=== PATIENT | male | born 1985 | race Hispanic/Latino ===

== ENCOUNTER 2017-04-25 21:29 | Inpatient (IN) | payer OTHER ==
[2017-04-25] MEDS ORDERED: NACL 0.9% 1000 ML 1,000 ML ONE (21:42)
[2017-04-25] MEDS ORDERED: ZOFRAN ONE (21:42)
[2017-04-25] MEDS ORDERED: TYLENOL ONE (21:52)
[2017-04-25] MEDS ORDERED: NACL 0.9% 500 ML 500 ML IV ONE (21:54)
[2017-04-25] MEDS ORDERED: TYLENOL PO STA (21:54)
[2017-04-25] MEDS ORDERED: NACL 0.9% 1000 ML 1,000 ML IV ONE (21:56)
[2017-04-25] MEDS ORDERED: ATIVAN IV ONE (22:03)
[2017-04-25] MEDS ORDERED: ATIVAN ONE (22:07)
[2017-04-25 22:17] LABS: Basophils % (Auto) 0.4 % (0.0-1.8); Eosinophils % (Auto) 0.4 % (0.0-4.3); Hematocrit 38.3 % (35.5-45.6); Hemoglobin 13.3 gm/dl (11.8-15.2); Mean Corpuscular HGB Conc 35 % (32-34); Mean Corpuscular Hemoglobin 30 pg (28-32); Mean Corpuscular Volume 87 fl (84-94); Platelet Count 129 K/mm3 (140-440); Red Blood Count 4.38 M/mm3 (3.65-5.03); Red Cell Distribution Width 13.9 % (13.2-15.2); White Blood Count 10.3 K/mm3 (4.5-11.0)
[2017-04-25 22:29] LABS: INR 1.07 (0.87-1.13)
[2017-04-25 22:37] LABS: Anion Gap 22 mmol/L; Blood Urea Nitrogen 12 mg/dL (9-20); Calcium 8.9 mg/dL (8.4-10.2); Carbon Dioxide 18 mmol/L (22-30); Chloride 100.3 mmol/L (98-107); Glucose 120 mg/dL (75-100); Sodium 137 mmol/L (137-145)
[2017-04-25 22:41] LABS: Alanine Aminotransferase 50 units/L (7-56); Albumin 3.5 g/dL (3.9-5); Albumin/Globulin Ratio 0.9 %; Alkaline Phosphatase 246 units/L (35-129); Anion Gap 21 mmol/L; BUN/Creatinine Ratio 13.33; Blood Urea Nitrogen 12 mg/dL (9-20); Calcium 9.1 mg/dL (8.4-10.2); Carbon Dioxide 18 mmol/L (22-30); Chloride 100.9 mmol/L (98-107); Glucose 124 mg/dL (75-100); Sodium 137 mmol/L (137-145); Total Protein 7.2 g/dL (6.3-8.2)
--- NOTE | 2017-04-25 22:43 | Emergency Department Report ---
HPI - General Chief Complaint: Nausea/Vomiting/Diarrhea Time Seen by Provider: 04/25/17 22:09 - HPI HPI: This is a 31-year-old male presents to the emergency department, brought in by family, with the complaint of some lethargy, chills, tremors, nausea and vomiting after the patient fell asleep in a hot car after doing some type of a illicit substance, methadone or methamphetamine, earlier today. He says that he was spending time with his mother while she was running errands. However the patient is a poor story and as he is consistently falling asleep unless he is stimulated. He appears to have a history of hepatitis C, Staci- Parkinson-White and previous history of polysubstance abuse. ED Past Medical Hx - Past Medical History Previous Medical History?: Yes Hx Liver Disease: Yes (HEP C) Hx Psychiatric Treatment: Yes (polysubstance abuse) Additional medical history: Yhszw-Xajehdknv-Ihxfs - Surgical History Past Surgical History?: Yes Additional Surgical History: Left foot surgery @ age 4. - Social History Smoking Status: Never Smoker Substance Use Type: None - Medications Home Medications: Home Medications Medication Instructions Recorded Confirmed Last Taken Type Methadone [Dolophine] 100 mg PO QDAY 05/28/13 10/18/13 04/25/17 History ED Review of Systems ROS: Stated complaint: OVERDOSE Other details as noted in HPI Comment: Unobtainable due to pts medical conditions Physical Exam - Physical Exam Vital Signs: Vital Signs 04/25/17 04/25/17 04/25/17 21:36 21:52 22:00 Temperature 104.5 F H Pulse Rate 146 H 131 H Respiratory 16 25 H 39 H Rate Blood Pressure 121/65 120/62 Physical Exam: GENERAL: Patient is ill-appearing. HENT: Normocephalic. Atraumatic. Patient has moist mucous membranes. EYES: Extraocular motions are intact. Pupils equal reactive to light bilaterally. NECK: Supple. Trachea is midline. CHEST/LUNGS: Clear to auscultation. There is no respiratory distress noted. HEART/CARDIOVASCULAR: Regular. There is no tachycardia. There is no gallop rub or murmur. ABDOMEN: Abdomen is soft, nontender. Patient has normal bowel sounds. There is no abdominal distention. SKIN: Skin is hot and there is some mild diaphoresis. NEURO: The patient is very sleepy but will arouse to verbal and painful stimuli. He is able to answer most questions appropriately but there is a lag between question and answer period and some signs of confusion. GCS of 12. MUSCULOSKELETAL: There is no tenderness or deformity. There is no evidence of acute injury. Radial pulses +2 over 4 bilaterally. Cap refill less than 2 seconds. ED Course Vital Signs 04/25/17 04/25/17 04/25/17 21:36 21:52 22:00 Temperature 104.5 F H Pulse Rate 146 H 131 H Respiratory 16 25 H 39 H Rate Blood Pressure 121/65 120/62 - Reevaluation(s) Reevaluation #1: Patient has been in the emergency department for multiple hours and will need admission. However he continues to be lethargic, began having hypotension and if not stimulated and is sleeping sometimes have some hypoxia. For this reason the decision was made to give him a dose of Narcan to attempt to reverse some of the methadone overdose. When the patient receive the methadone he began having some psychosis. I did not witness any seizure-like activity but he began thrashing about agitated. His blood pressure did improve and he was given some Ativan to help with the agitation and would also protect him against any withdrawal type seizures. We will continue to monitor him and he is going to be admitted to the ICU. 04/26/17 02:53 ED Medical Decision Making - Lab Data Result diagrams: 04/25/17 21:57 04/25/17 22:04 - EKG Data -: EKG Interpreted by Me EKG shows normal: sinus rhythm, axis, intervals, QRS complexes (Q waves to the inferior leads), ST-T waves Rate: tachycardia (143 bpm) - EKG Data When compared to previous EKG there are: previous EKG unavailable Interpretation: other (sinus tachycardia, Q waves in inferior leads) - Radiology Data Radiology results: report reviewed, image reviewed interpreted by me: Chest x-ray does not show any acute process. There are no pleural effusions, obvious pneumonia and there is no pneumothorax. CT of the head does not show any acute intracranial process including no ischemia, shift, mass, bleeding or skull fracture. - Medical Decision Making 31-year-old male presents to the emergency department after what appears to be some type of polysubstance abuse and/or drug overdose. He did these substances and then allegedly was in a hot car without air conditioning for about 2 hours. He then was taken home but began having some altered mental status and nausea and vomiting and was then brought into the emergency department. Upon presentation here, the patient is about a GCS of 12. He is sleeping, stimulated. Once you wake him up, he'll answer some questions but they are very short answers and he does display still some level of confusion. He was found to have a temperature of 104 and was given some Tylenol and ice bags. On the next temperature check, his temperature was down to about 101. On his labs there is no leukocytosis. There are no electrolyte of modalities, renal insufficiency. He does have a lactic acidosis but the recheck shows that resolved. His urine drug screen eventually showed positive for opiates, methadone, cocaine and marijuana. At one point the patient was found to have some borderline hypotension and when he was sleeping he would have some transient hypoxia. At this point it was decided to give him a dose of Narcan. He appeared to have a unusual response to the Narcan. It did not appear consistent with any immediate withdrawal and there were no seizures but he had some brief psychosis. In order to treat this psychosis and keep him from harming himself from thrashing around, the patient was given multiple doses of Ativan and was restrained. He now appears to be resting more comfortably. The patient still has some borderline hypotension but he maintains a MAP of about 65 with IV fluid at maintenance of about 150 mL per hour. Since he is able to keep this mean arterial pressure, I do not feel that placing a central line is warranted at this time as there are no pressors on board but he may need one in the future. However I believe some of this may be due to the Ativan he received. He will go to the ICU and has been accepted for admission by the hospitalist, Dr. Poole. - Differential Diagnosis substance abuse, heat stroke, CVA, sepsis Critical Care Time: No Critical care attestation.: If time is entered above; I have spent that time in minutes in the direct care of this critically ill patient, excluding procedure time. ED Disposition Clinical Impression: Polysubstance abuse Altered mental status Qualifiers: Altered mental status type: unspecified Qualified Code(s): R41.82 - Altered mental status, unspecified Fever Qualifiers: Fever type: unspecified Qualified Code(s): R50.9 - Fever, unspecified Disposition: DC-09 OP ADMIT IP TO THIS HOSP Is pt being admited?: Yes Condition: Serious Time of Disposition: 06:38
[2017-04-26] MEDS: KCL 10MEQ/100ML 10 MEQ/100 ML BAG IV SCH ×4 (00:15→04:04)
[2017-04-26] MEDS ORDERED: NACL 0.9% 1000 ML 1,000 ML IV ONE ×3 (00:20→01:36)
[2017-04-26] MEDS ORDERED: ZOFRAN IV ONE (01:16)
--- NOTE | 2017-04-26 01:22 | Cat Scan Report ---
FINAL REPORT EXAM: CT HEAD/BRAIN WO CON HISTORY: AMS TECHNIQUE: CT was performed from the foramen magnum through the vertex in the axial plane without the use of intravenous contrast. PRIORS: None. FINDINGS: The martinez/white matter attenuation pattern is normal. There is no mass lesion or mass effect. There are no abnormal extra-axial fluid collections. There is no evidence of acute intracranial hemorrhage or infarct. The ventricles are of normal size and configuration. The skull and orbits are unremarkable. The visualized paranasal sinuses are clear. IMPRESSION: Normal CT of the head.
--- NOTE | 2017-04-26 02:01 | History and Physical Report ---
History of Present Illness Date of examination: 04/26/17 Chief complaint: Altered Mental status History of present illness: 31-year-old gentleman with past medical history significant for hepatitis C, polysubstance abuse, Hmeqa-Ixxybbuzt-Nchnp syndrome was brought to the emergency department for complaints of altered mental status. Patient was found sleeping in a hot car. Patient has been using methadone and some illicit drugs. She is the patient is altered history is obtained from chart review. By the time he presented to the emergency department he was lethargic and temperature was 104 degrees Fahrenheit. Patient is hypotensive and he is on bolus of fluids. Review of systems could not be obtained because of altered mental status. Patient anesthesia of his airways. Patient refused catheterization. Past History Past Medical History: other (polysubstance abuse, hep C, Oasvy-Garchskbl-Twunj syndrome.) Past Surgical History: Other (couldn't obtain because of altered mental status.) Social history: prescription drug abuse, other (couldn't obtain because of altered mental status.) Family history: other (couldn't obtain because of altered mental status.) Medications and Allergies Allergies Allergy/AdvReac Type Severity Reaction Status Date / Time No Known Allergies Allergy Verified 07/13/13 11:39 Home Medications Medication Instructions Recorded Confirmed Last Taken Type Methadone [Dolophine] 100 mg PO QDAY 05/28/13 10/18/13 04/25/17 History Active Meds: Active Medications Enoxaparin Sodium (Lovenox) 40 mg SUB-Q QDAY JAMIE Potassium Chloride (Kcl 10meq/100ml) 10 meq in 100 mls @ 100 mls/hr IV Q1H JAMIE Stop: 04/26/17 03:44 Last Admin: 04/26/17 01:50 Dose: 100 mls/hr Sodium Chloride (Nacl 0.9% 1000 Ml) 1,000 mls @ 150 mls/hr IV ONCE ONE Stop: 04/26/17 07:14 Last Admin: 04/26/17 00:15 Dose: 150 mls/hr Sodium Chloride (Nacl 0.9% 1000 Ml) 1,000 mls @ 999 mls/hr IV BOLUS ONE Stop: 04/26/17 02:36 Last Admin: 04/26/17 01:51 Dose: 999 mls/hr Review of Systems ROS unobtainable: due to mental status (couldn't obtain because of altered mental status.) Exam - Physical Exam Narrative exam: Not in cardiopulmonary distress. The patient appeared well nourished and normally developed. Vital signs as documented. Head exam is unremarkable. No scleral icterus . Neck is without jugular venous distension, thyromegaly, or carotid bruits. Lungs are clear to auscultation. Cardiac exam reveals regular rate and Rhythm. First and second heart sounds normal. No murmurs, rubs or gallops. Abdominal exam reveals normal bowel sounds, no masses, no organomegaly and no aortic enlargement. Extremities are nonedematous and both femoral and pedal pulses are normal. INS[employer]OR [employer] MIRROR: Patient is lethargic. - Constitutional Vitals: Temp Pulse Resp BP Pulse Ox 101.6 F H 113 H 20 85/43 90 04/26/17 00:05 04/26/17 01:30 04/26/17 01:30 04/26/17 01:30 04/26/17 01:30 Results - Labs CBC & Chem 7: 04/25/17 21:57 04/25/17 22:04 Labs: Laboratory Last Values WBC 10.3 K/mm3 (4.5-11.0) 04/25/17 21:57 RBC 4.38 M/mm3 (3.65-5.03) 04/25/17 21:57 Hgb 13.3 gm/dl (11.8-15.2) 04/25/17 21:57 Hct 38.3 % (35.5-45.6) 04/25/17 21:57 MCV 87 fl (84-94) 04/25/17 21:57 MCH 30 pg (28-32) 04/25/17 21:57 MCHC 35 % (32-34) H 04/25/17 21:57 RDW 13.9 % (13.2-15.2) 04/25/17 21:57 Plt Count 129 K/mm3 (140-440) L 04/25/17 21:57 Lymph % (Auto) 10.6 % (13.4-35.0) L 04/25/17 21:57 [place] % (Auto) 1.4 % (0.0-7.3) 04/25/17 21:57 Eos % (Auto) 0.4 % (0.0-4.3) 04/25/17 21:57 Baso % (Auto) 0.4 % (0.0-1.8) 04/25/17 21:57 Lymph # 1.1 K/mm3 (1.2-5.4) L 04/25/17 21:57 Pacific # 0.1 K/mm3 (0.0-0.8) 04/25/17 21:57 Eos # 0.0 K/mm3 (0.0-0.4) 04/25/17 21:57 Baso # 0.0 K/mm3 (0.0-0.1) 04/25/17 21:57 Seg Neutrophils % 87.2 % (40.0-70.0) H 04/25/17 21:57 Seg Neutrophils # 9.0 K/mm3 (1.8-7.7) H 04/25/17 21:57 PT 13.8 Sec. (12.2-14.9) 04/25/17 21:57 INR 1.07 (0.87-1.13) 04/25/17 21:57 VBG pH 7.495 (7.320-7.420) H 04/25/17 21:57 Sodium 137 mmol/L (137-145) 04/25/17 22:04 Potassium 3.0 mmol/L (3.6-5.0) L 04/25/17 22:04 Chloride 100.3 mmol/L (98-107) 04/25/17 22:04 Carbon Dioxide 18 mmol/L (22-30) L 04/25/17 22:04 Anion Gap 22 mmol/L 04/25/17 22:04 BUN 12 mg/dL (9-20) 04/25/17 22:04 Creatinine 1.0 mg/dL (0.8-1.5) 04/25/17 22:04 Estimated GFR > 60 ml/min 04/25/17 22:04 BUN/Creatinine Ratio 12.00 % 04/25/17 22:04 Glucose 120 mg/dL (75-100) H 04/25/17 22:04 Lactic Acid 1.90 mmol/L (0.7-2.0) 04/26/17 00:20 Calcium 8.9 mg/dL (8.4-10.2) 04/25/17 22:04 Total Bilirubin 0.30 mg/dL (0.1-1.2) 04/25/17 21:57 AST 60 units/L (5-40) H 04/25/17 21:57 ALT 50 units/L (7-56) 04/25/17 21:57 Alkaline Phosphatase 246 units/L (35-129) H 04/25/17 21:57 Total Creatine Kinase 75 units/L (55-170) 04/25/17 22:04 Troponin T < 0.010 ng/mL (0.00-0.029) 04/25/17 22:04 Total Protein 7.2 g/dL (6.3-8.2) 04/25/17 21:57 Albumin 3.5 g/dL (3.9-5) L 04/25/17 21:57 Albumin/Globulin Ratio 0.9 % 04/25/17 21:57 - Imaging and Cardiology Chest x-ray: image reviewed (no acute cardiothoracic abnormalities identified) CT Scan - head: image reviewed (no acute interacranial abnormalities identified) Assessment and Plan Assessment and plan: Heat stroke Altered mental status due to drug overdose Hypotension Dehydration Hypokalemia Fever - Patient is resisted on IV normal saline, blood pressure blood pressure is still low, he may need admission to ICU for pressor treatment - We couldn't obtain UDS because patient refused cardiac catheterization - Replete potassium - Chest x-ray is negative, CT head is negative DVT prophylaxis - Lovenox Disposition - Admit to ICU can be downgraded to medical floor blood pressure normalized. - Discussed with Dr. Kerr to put a central line if his BP is continued to be low. Advance Directives: Yes VTE prophylaxis?: Chemical Plan of care discussed with patient/family: No
[2017-04-26] MEDS ORDERED: NARCAN 2 MG/2 ML IV ONE (02:10)
[2017-04-26] MEDS ORDERED: NARCAN 0.4 MG/1 ML ONE (02:12)
[2017-04-26] MEDS ORDERED: BENADRYL ONE (02:22)
[2017-04-26] MEDS ORDERED: KETALAR ONE (02:22)
[2017-04-26] MEDS ORDERED: ATIVAN ONE ×2 (02:30→02:38)
[2017-04-26 04:09] LABS: Urine Drugs of Abuse Note Disclamer
[2017-04-26 04:30] LABS: Bilirubin,Urine NEG (Negative); Blood,Urine MOD (Negative); Ketones,Urine NEG (Negative); Leukocyte Esterase,Urine NEG (Negative); Mucus,Urine 3+ /HPF; Nitrite,Urine NEG (Negative); Urobilinogen,Urine < 2.0 mg/dL (<2.0)
[2017-04-26] MEDS ORDERED: BENADRYL IV ONE (05:13)
[2017-04-26] MEDS ORDERED: ATIVAN IV ONE ×3 (05:13→05:17)
[2017-04-26] MEDS ORDERED: ROCEPHIN/NS 2 GM/100 ML 2 GM/100 ML BAG IV ONE (06:41)
[2017-04-26] MEDS ORDERED: VANCOMYCIN VIAL IV ONE (06:42)
[2017-04-26] MEDS ORDERED: VANCOMYCIN PHARMACY TO DOSE IV SCH (07:00)
--- NOTE | 2017-04-26 07:21 | XRay Report ---
Chest: History: Possible sepsis. Findings: Normal cardiomediastinal silhouette. Trachea is midline. No consolidation, pneumothorax or pleural effusion. Impression: No acute cardiopulmonary findings.
[2017-04-26] MEDS ORDERED: VANCOMYCIN 1,500 MG in NACL 0.9% 500 ML 500 ML IV ONE (08:00)
[2017-04-26] MEDS ORDERED: NACL 0.9% 500 ML 500 ML IV ONE ×2 (09:04→11:18)
[2017-04-26] MEDS ORDERED: NACL 0.9% 1000 ML 1,000 ML ONE (09:57)
[2017-04-26] MEDS ORDERED: LOVENOX SUB-Q SCH (10:00)
[2017-04-26] MEDS ORDERED: NACL 0.9% 500 ML 500 ML ONE ×2 (14:25)
[2017-04-26] MEDS ORDERED: VANCOMYCIN/NS 1 GM/250 ML 1 GM/250 ML BAG IV SCH (16:00)
[2017-04-26 18:30] VITALS: BP 101/57
--- NOTE | 2017-04-27 20:24 | Discharge Summary ---
Providers - Providers Date of Admission: 04/26/17 01:58 Date of discharge: 04/26/17 Attending physician: TAYLOR JEAN BAPTISTE Primary care physician: ANANTH ROOT MD Hospitalization Condition: Serious Hospital course: Patient left AMA the day he was admitted before being seen by the rounding physician. Disposition: DC-07 LEFT AGAINST MED ADVICE Core Measure Documentation - Palliative Care Palliative Care/ Comfort Measures: Not Applicable - Core Measures Any of the following diagnoses?: none Exam - Constitutional Vitals: Temp Pulse Resp BP Pulse Ox 98.5 F 108 H 18 101/57 96 04/26/17 18:29 04/26/17 18:29 04/26/17 18:29 04/26/17 18:29 04/26/17 18:29 Plan Follow up with: ANANTH ROOT MD [Primary Care Provider] - 3-5 Days
== END 2017-04-26 20:00 | disposition left against medical advice (07) | DRG 918 ==
LOC: ED 21:29 → CC1 04-26 01:58
PROVIDERS: ADMIT Internal Medicine; ATTEND Internal Medicine
DX: T50.991A Poisoning by other drugs, medicaments and biological substances, accidental (unintentional), initial encounter (principal); T67.0XXA Heatstroke and sunstroke, initial encounter; R40.4 Transient alteration of awareness; I95.9 Hypotension, unspecified; F19.10 Other psychoactive substance abuse, uncomplicated; E86.0 Dehydration; E87.6 Hypokalemia; I45.6 Pre-excitation syndrome; Y92.89 Other specified places as the place of occurrence of the external cause; Z53.21 Procedure and treatment not carried out due to patient leaving prior to being seen by health care provider
CPT/HCPCS: 36415; 70450; 71010; 80048; 80053; 80307; 80320; 81001; 82140; 82550; 82805; 84484; 85025; 85610; 87040; 87086; 93005; 93010; 96361; 96374; 96375; 99285; G0480; J0696; J1200; J1650; J2060; J2310; J2405; J3370; J3480; J7030; J7040